=== PATIENT | female | born 1990 | race Hispanic/Latino ===

== ENCOUNTER → 2023-11-17 | Outpatient (REF) | payer BC | LOC: NM 10:34 | PROVIDERS: ATTEND Nurse Practitioner | DX: R10.11 Right upper quadrant pain (principal); K81.9 Cholecystitis, unspecified | CPT/HCPCS: 78227; 81025; A9537 ==

== ENCOUNTER → 2024-08-10 | Day surgery (SDC) | payer BC ==
[~2024-08-10] MED LIST: ASHWAGANDHA62.5 MG PO; BIOTIN PO; FENTANYL CITRATE/PF 100MCG/2 ML INJ ONE; LIDOCAINE HCL 2% LOCAL INJ 5 ML SDV VIAL INJ ONE; METOCLOPRAMIDE HCL 10 MG/2ML VIAL ONE; MOUNJARO5 MG/0.5 M SC; PROPOFOL IV EMULSION 10 MG/ML 20 ML VIAL ONE
[2024-08-10] MEDS: LACTATED RINGER'S 1,000 ML ONE (08:45)
[2024-08-10 11:25] VITALS: TEMP 97.4
[2024-08-10 11:55] VITALS: BP 124/80; PULSE 96; RESP 17; O2SAT 98
[2024-08-11 06:15] LABS: C-REACTIVE PROTEIN 8 mg/L (0-10)
[2024-08-17 10:12] LABS: ENDOMYSIAL ANTIBODIES, IGA Negative (Negative)
[2024-08-17 11:19] LABS: IMMUNOGLOBULIN A 163 mg/dL (87-352); TISSUE TRANSGLUTAMINASE IGA AB <2 U/mL (0-3)
== END | disposition home or self-care (01) ==
LOC: OR 07:42
PROVIDERS: ATTEND Internal Medicine Gastroenterology
DX: K29.70 Gastritis, unspecified, without bleeding (principal); K31.1 Adult hypertrophic pyloric stenosis; K20.90 Esophagitis, unspecified without bleeding; K44.9 Diaphragmatic hernia without obstruction or gangrene; K21.9 Gastro-esophageal reflux disease without esophagitis; M32.9 Systemic lupus erythematosus, unspecified; E11.9 Type 2 diabetes mellitus without complications; I10 Essential (primary) hypertension; Z01.810 Encounter for preprocedural cardiovascular examination; Z79.85 Long-term (current) use of injectable non-insulin antidiabetic drugs
CPT/HCPCS: 36415; 43239; 43245; 81025; 82784; 82948; 83516; 86140; 86256; 93005; C1726; J2003; J2470; J2704; J2765; J3010; J7121; 43450

== ENCOUNTER → 2024-09-29 | Day surgery (SDC) | payer BC ==
[~2024-09-29] MED LIST changes: +DEXAMETHASONE SOD PHOS INJ 4 MG/ML SDV ONE; -FENTANYL CITRATE/PF 100MCG/2 ML INJ ONE; -METOCLOPRAMIDE HCL 10 MG/2ML VIAL ONE; +NORETHINDRONE0.35 MG PO; +ONDANSETRON HCL INJ 2MG/ML 2ML 2 MG/ML VIAL ONE; -PROPOFOL IV EMULSION 10 MG/ML 20 ML VIAL ONE; +PROPOFOL IV EMULSION 50 ML IV ONE; +[UNRECOGNIZED DRUG - OTHER]; +[UNRECOGNIZED DRUG - OTHER] PO
[2024-09-29] MEDS: LACTATED RINGER'S 1,000 ML ONE (12:35)
[2024-09-29 14:55] VITALS: BP 131/89; PULSE 87; RESP 15; TEMP 97.9; O2SAT 99
[2024-09-29 15:38] LABS: CDIFF AG QUIK CHEK NEGATIVE (NEGATIVE); CDIFF TOX QUIK CHEK NEGATIVE (NEGATIVE)
== END | disposition home or self-care (01) ==
LOC: OR 10:44
PROVIDERS: ATTEND Internal Medicine Gastroenterology
DX: K52.9 Noninfective gastroenteritis and colitis, unspecified (principal); K62.89 Other specified diseases of anus and rectum; K64.8 Other hemorrhoids; K29.70 Gastritis, unspecified, without bleeding; K21.9 Gastro-esophageal reflux disease without esophagitis; M32.9 Systemic lupus erythematosus, unspecified; I10 Essential (primary) hypertension; Z71.89 Other specified counseling; Z79.899 Other long term (current) drug therapy; Z68.28 Body mass index [BMI] 28.0-28.9, adult; Z71.3 Dietary counseling and surveillance
CPT/HCPCS: 36415; 45380; 81025; 82948; 83630; 83993; 87045; 87177; 87324; 87328; 87449; J1100; J2003; J2405; J2704; J7121; 45378

== ENCOUNTER → 2025-01-02 | Day surgery (SDC) | payer BC ==
[~2025-01-02] MED LIST changes: -DEXAMETHASONE SOD PHOS INJ 4 MG/ML SDV ONE; +METOCLOPRAMIDE HCL 10 MG/2ML VIAL ONE; +MULTI-VITAMIN1 EACH PO; +PROPOFOL IV EMULSION 10 MG/ML 20 ML VIAL ONE; -PROPOFOL IV EMULSION 50 ML IV ONE
[2025-01-02] MEDS: LACTATED RINGER'S 1,000 ML ONE (10:45)
[2025-01-02] MEDS: DEXTROSE 5% 250ML 250 ML IV ONE (10:45)
[2025-01-02 11:43] VITALS: TEMP 98.6
[2025-01-02 12:10] VITALS: BP 132/98; PULSE 70; RESP 16; O2SAT 100
[2025-01-05 07:13] LABS: ENDOMYSIAL ANTIBODIES, IGA Negative (Negative)
[2025-01-05 08:46] LABS: TISSUE TRANSGLUTAMINASE IGA AB <2 U/mL (0-3)
== END | disposition home or self-care (01) ==
LOC: OR 10:14
PROVIDERS: ATTEND Internal Medicine Gastroenterology
DX: K29.70 Gastritis, unspecified, without bleeding (principal); Z87.19 Personal history of other diseases of the digestive system; K20.90 Esophagitis, unspecified without bleeding; K44.9 Diaphragmatic hernia without obstruction or gangrene; K31.89 Other diseases of stomach and duodenum; R19.7 Diarrhea, unspecified; Z90.49 Acquired absence of other specified parts of digestive tract; M32.9 Systemic lupus erythematosus, unspecified; E11.9 Type 2 diabetes mellitus without complications; I10 Essential (primary) hypertension; Z71.89 Other specified counseling; G51.0 Bell's palsy; K21.9 Gastro-esophageal reflux disease without esophagitis; Z01.810 Encounter for preprocedural cardiovascular examination; Z68.29 Body mass index [BMI] 29.0-29.9, adult; Z71.3 Dietary counseling and surveillance
CPT/HCPCS: 36415; 43245; 81025; 82784; 82948; 83516; 86256; 93005; C1726; J2003; J2405; J2470; J2704; J2765; J7121; 43239